=== PATIENT | female | born 1965 | race Caucasian/White ===

== ENCOUNTER 2017-07-12 21:28 | Emergency (ER) | payer OTHER ==
[~2017-07-12] VITALS: Ht 162.6 cm; Wt 53.0 kg
[~2017-07-12 21:28] MED LIST: ASPI-535 PO; CLON0.2T5 PO; CNC30T PO; FOLI-49 PO; LOSA100T7 PO; NEPHROVITE PO; SEVE800T10 PO
[2017-07-12 21:34] VITALS: Ht 162.6 cm; Wt 53.0 kg
--- NOTE | 2017-07-12 23:56 | ERA ---
ER Documentation Chief Complaint Date/Time DATE: 07/12/17 TIME: 23:56 Chief Complaint swelling right eyelid HPI The patient is a 52-year-old female, presenting to the ER because of right upper eyelid swelling after this he tried to squeeze a pimple and picked on her eyebrow, she also complained of chronic headache and chronic neck. She denies any trauma, chest pain, dyspnea, abdominal pain, vomiting, dysuria, diarrhea. She does not smoke nor drink Past medical history: Chronic kidney disease on hemodialysis Sunday and Sunday, hypertension Past surgical history: 3 , AV fistula ROS All systems reviewed and are negative except as per history of present illness. Medications Home Meds Active Scripts Cephalexin* (Keflex*) 500 Mg Capsule, 500 MG PO QID for 5 Days, CAP Prov:PASCAUL BARAHONA MD 07/13/17 Reported Medications Cyanocobalamin/Folic Acid (Vitamin N57-Ukcmi Acid Tablet) 1 Each Tablet, 1 EACH PO, TAB 07/13/17 Labetalol Hcl* (Labetalol Hcl*) 100 Mg Tablet, 100 MG PO BID, TAB 07/13/17 Losartan Potassium* (Losartan Potassium*) 100 Mg Tablet, 100 MG PO DAILY, TAB 07/25/16 Clonidine Hcl* (Clonidine Hcl*) 0.2 Mg Tablet, 0.2 MG PO Q8, TAB 07/25/16 Sevelamer Hcl* (Renagel*) 800 Mg Tablet, 800 MG PO WITH MEALS, TAB 01/14/15 [Nephrovite] No Conflict Check, 1 TAB PO DAILY 01/14/15 Folic Acid* (Folic Acid*) 1 Mg Tablet, 1 MG PO DAILY, TAB 01/14/15 Aspirin Ec (Aspir 81) 81 Mg Tablet.dr, 81 MG PO DAILY, TAB 01/14/15 Discontinued Reported Medications Cinacalcet* (Sensipar*) 30 Mg Tab, 30 MG PO DAILY, TAB 07/25/16 Allergies Allergies: Coded Allergies: mushroom (Unverified Allergy, Intermediate, RASH, 07/13/17) No Known Drug Allergies (Unverified Allergy, Unknown, 07/13/17) PMhx/Soc History of Surgery: Yes (C- SECTION X3, AV FISTULA) Anesthesia Reaction: No Hx Neurological Disorder: No Hx Respiratory Disorders: No Hx Cardiac Disorders: Yes (HTN, VENOUS STENOSIS) Hx Psychiatric Problems: No Hx Miscellaneous Medical Probl: Yes (dialysis ,, and sunday) Hx Alcohol Use: No Hx Substance Use: No Hx Tobacco Use: No Physical Exam Vitals Vital Signs Date Time Temp Pulse Resp B/P Pulse Ox O2 Delivery O2 Flow Rate FiO2 07/13/17 03:45 70 18 171/69 97 Room Air 07/13/17 02:29 77 20 168/94 97 Room Air 07/12/17 21:34 98.2 88 20 179/100 97 Physical Exam Const: No acute distress. Head: Atraumatic. Eyes: Normal Conjunctiva. Left upper eyelid with a small pustule with surrounding edema, minimal discharge ENT: Normal External Ears, Nose and Mouth. Neck: Full range of motion. No meningismus. Resp: Clear to auscultation bilaterally. Cardio: Regular rate and rhythm. Abd: Soft, non distended, normal bowel sounds, non tender. Skin: No petechiae or rashes. Back: No midline or flank tenderness. Ext: No cyanosis, or edema. Neur: Awake and alert. No focal deficit Psych: Normal Mood and Affect. Results 24 hrs Current Medications Medications (Trade) Dose Ordered Sig/José Manuel Route PRN Reason Start Time Stop Time Status Last Admin Dose Admin Acetaminophen/ Hydrocodone Bitart ([place] (10/325)) 1 tab ONCE ONCE PO 07/13/17 00:30 07/13/17 00:31 DC 07/13/17 01:46 Ondansetron HCl (Zofran Odt) 4 mg ONCE STAT ODT 07/13/17 00:29 07/13/17 00:31 DC 07/13/17 01:45 Procedures/[place] [id number] Radiology Main Line: [phone] DIAGNOSTIC IMAGING REPORT Patient: KHLOE HALL : 1965 Age: 52 Sex: F MR #: [id number] DOS: 07/13/17 0029 Ordering MD: PASCUAL BARAHONA MD Location: E/R Room/Bed: PROCEDURE: CT HEAD WITHOUT CONTRAST: CLINICAL INDICATION: 52 years of age female. Headache COMPARISON: None available. TECHNIQUE: CT of the head was performed without IV contrast. Sagittal and coronal reformations were constructed. Dose information: The estimated radiation dose (CTDI vol mGy) for each series in this exam is 45 . The estimated cumulative dose (DLP mGy-cm) is 720 . FINDINGS: Parenchyma: Negative for evidence of acute intracranial hemorrhage, mass effect or large territory infarct. Viveros-white matter differentiation is maintained. Minimal intracranial atherosclerosis. Ventricles and extra-axial spaces: Mild prominence of the ventricles proportionate to the sulci in keeping with mild cerebral tissue loss. No abnormal extra-axial fluid collections are identified. There is coarse calcification along the anterior falx. Visualized paranasal sinuses: Clear. Mastoid air cells: Clear. 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 This results in central canal stenosis at C1 measuring 0.9 cm in AP diameter with effacement of the subarachnoid space around the spinal cord but without compression of the spinal cord. Additional comment: None. IMPRESSION: Negative for evidence of acute intracranial hemorrhage or mass effect. Cause for acute headache is not evident. 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 This could indicate atlantoaxial instability. This could better be evaluated with CT or MRI of the cervical spine. Findings were discussed with Dr Pascual Barahona by Dr. Olivia Hugo on July 13, 2017 at 01:14 a.m.. RPTAT: HCTS Physician Gely Date Time Electronically viewed and signed by Wanda Hugo Physician on 07/13/2017 01: 16 CS/ CC: PASCUAL BARAHONA MD [place] [id number] Radiology Main Line: [phone] DIAGNOSTIC IMAGING REPORT Patient: KHLOE HALL : 1965 Age: 52 Sex: F MR #: [id number] DOS: 07/13/17 0115 Ordering MD: PASCUAL BARAHONA MD Location: E/R Room/Bed: PROCEDURE: CT Cervical Spine without contrast. CLINICAL INDICATION: Pain. TECHNIQUE: Noncontrast CT of the cervical spine was performed with axial images. Coronal and sagittal images were also performed. The administered radiation dose was CTDI vol = 22.4 mGy, DLP = 518 mGy-cm. COMPARISON: There are no similar studies submitted for comparison. FINDINGS: There is extensive ligamentous thickening and / or pannus formation surround the dens. This causes some mild anterior displacement of C1 relative to C2 and mild spinal canal narrowing at the level of the dens. This also causes some mild basilar invagination. There is some disk space narrowing at C5-6 and C6-7. Small posterior disk osteophyte complexes are seen at both levels without significant spinal canal or neural foraminal narrowing. Vertebral body stature and alignment are maintained. No acute fracture or subluxation is identified. The paravertebral and paraspinous soft tissues are unremarkable. IMPRESSION: No acute fracture. Mild anterolisthesis of C1 relative to the dens due to pannus formation/ ligamentous thickening surrounding the dens. RPTAT: HIKT .Saroj Jesus MD, MD Date Time Electronically viewed and signed by .Saroj Jesus MD, MD on 07/13/2017 02:42 .T/ CC: PASCUAL BARAHONA MD MEDICAL MAKING DECISION: The patient is a 52-year-old female, presenting with acute right eyebrow folliculitis, chronic headache and chronic neck pain. She was treated with [place] 10 mg p.o. and Zofran ODT for her discomfort with good response The differential diagnoses considered include but are not limited to cellulitis , abscess, fracture, sprain, internal derangement Departure Diagnosis: Primary Impression: Folliculitis Additional Impressions: Headache Neck pain Condition: Good Comments I discussed the findings with the patient. I advised the patient to follow-up with the primary physician in about 1-2 days, sooner if needed and return if any concern. She was discharged with Keflex and advised to follow with her physician for cervical MRI for further evaluation BARAHONAPASCUAL Vaz MD Jul 12, 2017 23:56
[2017-07-13] MEDS ORDERED: ONDANSETRON (ODT) 4 MG TAB ODT STA (00:29)
[2017-07-13] MEDS ORDERED: HYDROCODONE/APAP (10/325) TAB PO ONE (00:30)
--- NOTE | 2017-07-13 01:16 | RADRPT ---
AMENDMENT: 07/21/2017 11:19:15 PM Olivia Hugo M.D One or more of the following dose reduction techniques were used: - Automated exposure control. - Adjustment of the mA and/or kV according to patient size. - Use of iterative reconstruction technique. PROCEDURE: CT HEAD WITHOUT CONTRAST: CLINICAL INDICATION: 52 years of age female. Headache COMPARISON: None available. TECHNIQUE: CT of the head was performed without IV contrast. Sagittal and coronal reformations were constructed. Dose information: The estimated radiation dose (CTDI vol mGy) for each series in this exam is 45 . The estimated cumulative dose (DLP mGy-cm) is 720 . FINDINGS: Parenchyma: Negative for evidence of acute intracranial hemorrhage, mass effect or large territory i nfarct. Viveros-white matter differentiation is maintained. Minimal intracranial atherosclerosis. Ventricles and extra-axial spaces: Mild prominence of the ventricles proportionate to the sulci in k eeping with mild cerebral tissue loss. No abnormal extra-axial fluid collections are identified. The re is coarse calcification along the anterior falx. Visualized paranasal sinuses: Clear. Mastoid air cells: Clear. 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 This results in central canal stenosis at C1 measuring 0.9 cm in AP diameter with ef facement of the subarachnoid space around the spinal cord but without compression of the spinal cord . Additional comment: None. IMPRESSION: Negative for evidence of acute intracranial hemorrhage or mass effect. Cause for acute headache is not evident. Erosive arthritis of the atlantoaxial joint with widening of the predental space and moderate centra l canal stenosis. This could indicate atlantoaxial instability. This could better be evaluated with CT or MRI of the cervical spine. Findings were discussed with Dr Pascual Saleh by Dr. Olivia Hugo on July 13, 2017 at 01:14 a.m.. RPTAT: HCTS Wanda Hugo Physician Date Time Electronically viewed and signed by Wanda Hugo Physician on 07/21/2017 23:20 CS/
[2017-07-13] MEDS ORDERED: LABE100T3 PO (01:24)
[2017-07-13] MEDS ORDERED: CYAN1TAB28 PO (01:27)
--- NOTE | 2017-07-13 02:42 | RADRPT ---
PROCEDURE: CT Cervical Spine without contrast. CLINICAL INDICATION: Pain. TECHNIQUE: Noncontrast CT of the cervical spine was performed with axial images. Coronal and sagitta l images were also performed. The administered radiation dose was CTDI vol = 22.4 mGy, DLP = 518 mG y-cm. COMPARISON: There are no similar studies submitted for comparison. FINDINGS: There is extensive ligamentous thickening and / or pannus formation surround the dens. This causes some mild anterior displacement of C1 relative to C2 and mild spinal canal narrowing at the level of the dens. This also causes some mild basilar invagination. There is some disk space narrowing at C5-6 and C6-7. Small posterior disk osteophyte complexes are seen at both levels without significant spinal canal or neural foraminal narrowing. Vertebral body stature and alignment are maintained. No acute fracture or subluxation is identified. The paravertebral and paraspinous soft tissues are unremarkable. IMPRESSION: No acute fracture. Mild anterolisthesis of C1 relative to the dens due to pannus formation/ligamentous thickening surro unding the dens. RPTAT: HIKT .Saroj Jesus MD, Date Time Electronically viewed and signed by .Saroj Jesus MD, on 07/13/2017 02:42 .T/
[2017-07-13] MEDS ORDERED: CEPH-443 PO (03:31)
[2017-07-13 03:45] VITALS: BP 171/69; PULSE 70; RESP 18
== END 2017-07-13 03:46 | disposition home or self-care (01) ==
LOC: E/R 21:28
DX: L73.9 Follicular disorder, unspecified (principal); M54.2 Cervicalgia; I12.9 Hypertensive chronic kidney disease with stage 1 through stage 4 chronic kidney disease, or unspecified chronic kidney disease; N18.9 Chronic kidney disease, unspecified; Z79.82 Long term (current) use of aspirin; Z99.2 Dependence on renal dialysis
CPT/HCPCS: 70450; 72125; Z7502; Z7610

== ENCOUNTER 2017-09-12 21:28 | Emergency (ER) | payer SELFPAY ==
[~2017-09-12] VITALS: Ht 165.1 cm; Wt 52.0 kg
[~2017-09-12 21:28] MED LIST changes: +CEPH-443 PO; -CNC30T PO; +CYAN1TAB28 PO; +LABE100T3 PO
[2017-09-12 21:44] VITALS: Ht 165.1 cm; Wt 52.0 kg
== END 2017-09-13 02:58 | disposition left against medical advice (07) ==
LOC: FTE 21:28
DX: Z53.21 Procedure and treatment not carried out due to patient leaving prior to being seen by health care provider (principal)